=== PATIENT | female | born 1955 | race Caucasian/White ===

== ENCOUNTER → 2017-09-07 | Outpatient (CLI) | payer BC ==
--- NOTE | 2017-09-07 15:33 | WOMENS IMAGING REPORT ---
EXAM DESCRIPTION: BONE DENSITY HIP/SPINE COMPLETED DATE/TIME: 09/07/2017 9:37 am REASON FOR STUDY: OTHER OVARIAN FAILURE; E28.39 Z12.31 ENCNTR SCREEN MAMMOGRAM FOR MALIGNANT NEOPLA SM OF GABY E28.39 OTHER PRIMARY OVARIAN FAILURE COMPARISON: None. TECHNIQUE: Dual-Energy X-ray Absorptiometry (DEXA) of the AP Spine and Forearm. LIMITATIONS: None. FINDINGS: LUMBAR SPINE: The bone mineral density (BMD) measured from L1-L4 in the AP projection correlates with a T-score of -1.3, which is osteopenia as defined by the World Health Organization. FOREARM: The bone mineral density (BMD) measured in the right forearm correlates with a T-score of -0.2 for th e 1/3 measurement which is normal as defined by the World Health Organization. IMPRESSION: 1. LUMBAR SPINE: OSTEOPENIA. 2. FOREARM: NORMAL. COMMENT: The World Health Organization defines low BMD as follows: T-score: Normal: Greater than -1.0 Osteopenia: Between -1.0 and -2.5 Osteoporosis: Less than -2.5 without fractures Established osteoporosis: Less than -2.5 with fractures In general, you may wish to consider: Diagnosis Treatment Follow-up DEXA Normal BMD Prevention 2-3 years Osteopenia Prevention/Therapy 1-2 years Osteoporosis Therapy Yearly TECHNICAL DOCUMENTATION: JOB ID: [id number]- All Rights Reserved
--- NOTE | 2017-09-08 08:21 | WOMENS IMAGING REPORT ---
EXAM DESCRIPTION: 3D SCREENING MAMMO BILAT COMPLETED DATE/TIME: 09/07/2017 9:37 am REASON FOR STUDY: ROUTINE SCREENING; Z12.31 Z12.31 ENCNTR SCREEN MAMMOGRAM FOR MALIGNANT NEOPLASM O F GABY E28.39 OTHER PRIMARY OVARIAN FAILURE COMPARISON: 2016 TECHNIQUE: Standard craniocaudal and mediolateral oblique views of each breast recorded using digita l acquisition and breast tomosynthesis. LIMITATIONS: None. FINDINGS: No masses, calcifications or architectural distortion. No areas of suspicion. Read with the assistance of CAD. .[facility] - R2 Cenova Version 1.3 .[facility] Imaging - R2 Cenova Version 1.3 .[facility] Imaging - R2 Cenova Version 2.4 .[facility] - R2 Cenova Version 2.4 .[facility] - R2 Regulatory Affairs Specialist Version 9.2 IMPRESSION: NORMAL MAMMOGRAM. BIRADS 1. BREAST DENSITY: c. The breasts are heterogeneously dense, which may obscure small masses. BIRAD: 1 NEGATIVE RECOMMENDATION: ROUTINE SCREENING COMMENT: The patient has been notified of the results by letter per SA requirements. Additional no tification policies are in place for contacting patient with suspicious or incomplete findings. Quality ID #[id number]: The [employer] recommends an annual screening mammogram for women aged 40 years or over. This facility utilizes a reminder system to ensure that all patients receive reminder letters, and/or direct phone calls for appointments. This includes reminders for routine scr eening mammograms, diagnostic mammograms, or other Breast Imaging Interventions when appropriate. Th is patient will be placed in the appropriate reminder system. The [employer] (ACR) has developed recommendations for screening MRI of the breast s in certain patient populations, to be used in conjunction with mammography. Breast MRI surveillanc e may be appropriate for women with more than 20% lifetime risk of developing breast cancer as deter mined by genetic testing, significant family history of the disease, or history of mantle radiation f or Hodgkins Disease. ACR Practice Guidelines 2008. DBT Technology DBT is a type of tomographic mammography. With conventional mammography, overlapping breast tissue ma y make lesions difficult to detect, even with good compression. DBT uses an x-ray tube that rotates a round the breast, taking images at different angles. These images are then combined to create thin sl ices of the breast that the radiologist can view as a 3D reconstruction. The [employer] unit can perform full-field digital mammograms (2D imaging); or DBT (3D imaging); or both, in a combination mode that quickly performs both the mammogram and the tomosynthesis scan while the breast is still compressed. PQRS 6045F: Fluoroscopic imaging is not utilized for breast tomosynthesis. TECHNICAL DOCUMENTATION: FINDING NUMBER: (1) ASSESSMENT: (1) JOB ID: [id number] [employer]- All Rights Reserved
== END ==
LOC: WI 09:07
PROVIDERS: ATTEND Internal Medicine
DX: Z12.31 Encounter for screening mammogram for malignant neoplasm of breast (principal); E28.39 Other primary ovarian failure
CPT/HCPCS: 77063; 77067; 77080

== ENCOUNTER 2017-09-19 22:32 | Emergency (ER) | payer BC ==
[2017-09-19] MEDS ORDERED: ACETAMINOPHEN 325 MG TABLET PO ONE (22:46)
--- NOTE | 2017-09-20 00:35 | RADIOLOGY REPORT (SQ) ---
EXAM DESCRIPTION: WRIST RIGHT 3 VIEWS CLINICAL HISTORY: 62 years, Female, fall, pain, swelling COMPARISON: Examination: XR WRIST 3 OR MORE VIEWS BILATERAL dated 09/19/2017 10:42 PM LIFE SKILLS SPECIALIST History: fall, pain, swelling Comparison: None Technique: Three views of the right wrist FINDINGS: There is a mildly displaced fracture extending through the distal radial shaft without intra-articular extension. No significant angulation. Anatomic alignment of the carpal bones. No radius fracture. IMPRESSION: Mildly displaced distal radius fracture. LIMITATIONS: None. 2010 [employer]- All Rights Reserved
[2017-09-20] MEDS ORDERED: HYDROCODONE/ACETAMINOPHEN 5-325 MG (6 TAB/ER DISP) PO PRN (00:55)
--- NOTE | 2017-09-20 00:59 | ER Document Report ---
HPI - HPI Patient complains to provider of: Fall Pain Level: 5 Context: Patient is a [id number] 62-year-old female presents emergency department admitting to a fall landing on her right wrist on an outstretched hand. She admits to pain at the base of her thumb worse with movement. She denies any numbness and tingling distal to the wrist. She denies any previous injury to this wrist. - CONSTITUTIONAL Constitutional: DENIES: Fever, Chills - EENT EENT: DENIES: Sore Throat, Ear Pain, Eye problems - NEURO Neurology: DENIES: Headache, Weakness, Vision blurred, Dizzinesss / Vertigo - CARDIOVASCULAR Cardiovascular: DENIES: Chest pain - RESPIRATORY Respiratory: DENIES: Trouble Breathing, Coughing - GASTROINTESTINAL Gastrointestinal: DENIES: Abdominal Pain, Black / Bloody Stools - URINARY Urinary: DENIES: Dysuria, Urgency, Frequency - MUSCULOSKELETAL Musculoskeletal: REPORTS: Extremity pain - R wrist Past Medical History - Social History Smoking Status: Current Every Day Smoker Family History: Reviewed & Not Pertinent Patient has suicidal ideation: No Patient has homicidal ideation: No Renal/ Medical History: Denies: Hx Peritoneal Dialysis Psychiatric Medical History: Reports: Hx Depression Past Surgical History: Reports: Hx Orthopedic Surgery - bilat hips, L knee, R ankle, Hx Urinary Tract Surgery - bladder reconstruction Vertical Provider Document - CONSTITUTIONAL Agree With Documented VS: Yes Notes: PHYSICAL EXAM GENERAL: Alert, interacts well. EXTREMITIES: Moves all 4 extremities spontaneously with guarding of the right wrist. Pain reproducible palpation at the distal radius with moderate swelling. No obvious deformity. Range of motion intact. No edema, radial pulses 2/4 bilaterally. No cyanosis. Cap refill less than 2 seconds in bilateral upper extremity digits NEUROLOGICAL: Alert and oriented x4. Normal speech. PSYCH: Normal affect, normal mood. SKIN: Warm, dry, normal turgor. No rashes or lesions noted. - INFECTION CONTROL TRAVEL OUTSIDE OF THE [place] IN LAST 30 DAYS: No - RESPIRATORY O2 Sat by Pulse Oximetry: 96 Course - Re-evaluation Re-evalutation: 09/20/17 00:55 Patient is a 62-year-old female is hemodynamically stable, no acute distress and afebrile. Evidence of a minimally displaced distal radius fracture. Extremity is neurovascularly intact. Patient immobilized in a splint with education to follow-up with hand surgery this week. Otherwise discussed strict return precautions and patient is stable for discharge home - Vital Signs Vital signs: Temp Pulse Resp BP Pulse Ox 98.5 F 86 16 149/98 H 96 09/19/17 22:41 09/19/17 22:41 09/19/17 22:41 09/19/17 22:41 09/19/17 22:41 - Diagnostic Test Radiology reviewed: Image reviewed, Reports reviewed Discharge - Discharge Clinical Impression: Radius fracture Qualifiers: Encounter type: initial encounter Radius location: distal Fracture type: closed Fracture morphology: Colles' Laterality: right Qualified Code(s): S52.531A - Colles' fracture of right radius, initial encounter for closed fracture Condition: Good Disposition: HOME, SELF-CARE Instructions: Fractured Radius ([facility]), Splint Precautions ([facility]) Additional Instructions: Please call and schedule a follow up appointment with Dr Harrison to be seen in one week Prescriptions: Hydrocodone/Acetaminophen [[place] 5-325 mg Tablet] 1 tab PO Q6HP PRN #14 tablet PRN Reason: Forms: Elevated Blood Pressure Referrals: ALISA VILLEGAS NP [Primary Care Provider] - Follow up as needed MARYLU HARRISON DO [ACTIVE STAFF] - Follow up in 3-5 days
[2017-09-20 01:26] VITALS: BP 133/70
== END 2017-09-20 01:32 | disposition home or self-care (01) ==
LOC: ER 22:32
DX: S52.531A Colles' fracture of right radius, initial encounter for closed fracture (principal); W19.XXXA Unspecified fall, initial encounter; Y93.K9 Activity, other involving animal care; F17.200 Nicotine dependence, unspecified, uncomplicated
CPT/HCPCS: 99283

== ENCOUNTER → 2018-09-09 | Outpatient (CLI) | payer BC ==
--- NOTE | 2018-09-09 16:19 | WOMENS IMAGING REPORT ---
EXAM DESCRIPTION: 3D SCREENING MAMMO BILAT COMPLETED DATE/TIME: 09/09/2018 9:58 am REASON FOR STUDY: ROUTINE 3D BILATERL SCREENING,Z12.31 Z12.31 ENCNTR SCREEN MAMMOGRAM FOR MALIGNANT NEOPLASM OF GABY COMPARISON: 09/07/2017 TECHNIQUE: Standard craniocaudal and mediolateral oblique views of each breast recorded using digita l acquisition and breast tomosynthesis. LIMITATIONS: None. FINDINGS: Findings present which are benign by mammographic criteria. No suspicious masses, calcifi cations or architectural distortion. Pertinent benign findings: Old post lumpectomy changes right breast far upper outer quadrant about 10 cm from the nipple. Read with the assistance of CAD. [facility] - R2 Cenova Version 1.3 .[facility] Imaging - R2 Cenova Version 2.1 .[facility] Imaging - R2 Cenova Version 2.4 .[facility] [place] [facility] - R2 Cenova Version 2.4 .[facility] - R2 Biochemical Engineer Version 9.2 Benign mammographic findings may include one or more of the following: Smooth masses, popcorn/rim/co arse calcifications, asymmetries, post-procedure changes, and lesions with long-standing stability. IMPRESSION: BENIGN MAMMOGRAPHIC FINDINGS. BIRADS 2 BREAST DENSITY: c. The breasts are heterogeneously dense, which may obscure small masses. BIRAD: 2 BENIGN FINDING(S) RECOMMENDATION: RECOMMENDATION: ROUTINE SCREENING Please continue yearly bilateral screening tomosynthesis in August 2027 given heterogeneously dense tissue bilaterally COMMENT: The patient has been notified of the results by letter per SA requirements. Additional no tification policies are in place for contacting patient with suspicious or incomplete findings. Quality ID #[id number]: The [employer] recommends an annual screening mammogram for women aged 40 years or over. This facility utilizes a reminder system to ensure that all patients receive reminder letters, and/or direct phone calls for appointments. This includes reminders for routine scr eening mammograms, diagnostic mammograms, or other Breast Imaging Interventions when appropriate. Th is patient will be placed in the appropriate reminder system. The [employer] (ACR) has developed recommendations for screening MRI of the breast s in certain patient populations, to be used in conjunction with mammography. Breast MRI surveillanc e may be appropriate for women with more than 20% lifetime risk of developing breast cancer as deter mined by genetic testing, significant family history of the disease, or history of mantle radiation f or Hodgkins Disease. ACR Practice Guidelines 2008. DBT Technology DBT is a type of tomographic mammography. With conventional mammography, overlapping breast tissue ma y make lesions difficult to detect, even with good compression. DBT uses an x-ray tube that rotates a round the breast, taking images at different angles. These images are then combined to create thin sl ices of the breast that the radiologist can view as a 3D reconstruction. The [employer] unit can perform full-field digital mammograms (2D imaging); or DBT (3D imaging); or both, in a combination mode that quickly performs both the mammogram and the tomosynthesis scan while the breast is still compressed. PQRS 6045F: Fluoroscopic imaging is not utilized for breast tomosynthesis. TECHNICAL DOCUMENTATION: FINDING NUMBER: (1) ASSESSMENT: (1) JOB ID: [id number] [employer]- All Rights Reserved Reading location - IP/workstation name: [email or web address]
== END ==
LOC: WI 09:24
PROVIDERS: ATTEND Internal Medicine
DX: Z12.31 Encounter for screening mammogram for malignant neoplasm of breast (principal)
CPT/HCPCS: 77063; 77067

== ENCOUNTER → 2019-09-12 | Outpatient (CLI) | payer BC ==
--- NOTE | 2019-09-12 08:58 | WOMENS IMAGING REPORT ---
EXAM DESCRIPTION: 3D SCREENING MAMMO BILAT COMPLETED DATE/TIME: 09/12/2019 8:05 am REASON FOR STUDY: ROUTINE BILATERAL SCREENING;Z12.31 Z12.31 ENCNTR SCREEN MAMMOGRAM FOR MALIGNANT N EOPLASM OF GABY COMPARISON: 2017 EXAM PARAMETERS: Standard craniocaudal and mediolateral oblique views of each breast recorded using digital acquisition and breast tomosynthesis. Read with the assistance of CAD. .[facility] [employer] Thermoscrew Operator Version 9.2 LIMITATIONS: None. FINDINGS: Findings present which are benign by mammographic criteria. No suspicious masses, calcific ations or architectural distortion. Pertinent benign findings: Post lumpectomy changes right. Benign mammographic findings may include one or more of the following: Smooth masses, popcorn/rim/coa rse calcifications, asymmetries, post-procedure changes, and lesions with long-standing stability. IMPRESSION: BENIGN MAMMOGRAPHIC FINDINGS. BIRADS 2 BREAST DENSITY: c. The breasts are heterogeneously dense, which may obscure small masses. BIRAD: ASSESSMENT: 2 BENIGN FINDING(S) RECOMMENDATION: ROUTINE SCREENING COMMENT: The patient has been notified of the results by letter per SA requirements. Additional no tification policies are in place for contacting patient with suspicious or incomplete findings. Quality ID #[id number]: The [employer] recommends an annual screening mammogram for women aged 40 years or over. This facility utilizes a reminder system to ensure that all patients receive reminder letters, and/or direct phone calls for appointments. This includes reminders for routine scr eening mammograms, diagnostic mammograms, or other Breast Imaging Interventions when appropriate. Th is patient will be placed in the appropriate reminder system. TECHNICAL DOCUMENTATION: FINDING NUMBER: (1) ASSESSMENT: (1) JOB ID: [id number] 2010 [employer]- All Rights Reserved Reading location - IP/workstation name: [email or web address]
== END ==
LOC: WI 07:27
PROVIDERS: ATTEND Internal Medicine
DX: Z12.31 Encounter for screening mammogram for malignant neoplasm of breast (principal)
CPT/HCPCS: 77063; 77067

== ENCOUNTER → 2019-09-30 | Outpatient (CLI) | payer BC ==
--- NOTE | 2019-09-30 10:19 | WOMENS IMAGING REPORT ---
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 LIMITATIONS: None. FINDINGS: LUMBAR SPINE: The bone mineral density (BMD) measured from L1-L4 in the AP projection correlates with a T-score of -0.6, which is within normal limits as defined by the World Health Organization. BMD Change vs Baseline: This represents a 7% increase in bone density since 2018 FOREARM: The bone mineral density (BMD) measured in the left forearm correlates with a T-score of -1.4 which i s osteopenic as defined by the World Health Organization. BMD Change vs Baseline: This is unchanged from 2018 10 year Fracture Risk Assessment: Major Osteoporotic Fracture: Not available. Hip Fracture: Not available. IMPRESSION: 1. LUMBAR SPINE WHO CLASSIFICATION: Normal 2. FOREARM WHO CLASSIFICATION: Osteopenic OVERALL ASSESSMENT: WHO CLASSIFICATION: Osteopenic COMMENT: The World Health Organization defines low BMD as follows: T-score: Normal: Greater than -1.0 Osteopenia: Between -1.0 and -2.5 Osteoporosis: Less than -2.5 without fractures Established osteoporosis: Less than -2.5 with fractures In general, you may wish to consider: Diagnosis Treatment Follow-up DEXA Normal BMD Prevention 2-3 years Osteopenia Prevention/Therapy 1-2 years Osteoporosis Therapy Yearly TECHNICAL DOCUMENTATION: JOB ID: [id number] [employer]- All Rights Reserved Reading location - IP/workstation name: [email or web address]
== END ==
LOC: WI 08:23
PROVIDERS: ATTEND Physician Assistant Medical
DX: M85.832 Other specified disorders of bone density and structure, left forearm (principal); N95.9 Unspecified menopausal and perimenopausal disorder; Z79.811 Long term (current) use of aromatase inhibitors
CPT/HCPCS: 77080